=== PATIENT | female | born 1990 | race Caucasian/White ===

== ENCOUNTER 2017-02-26 23:48 | Emergency (ER) | payer OTHER ==
[~2017-02-26] VITALS: Ht 170.2 cm; Wt 76.2 kg
[~2017-02-26 23:48] MED LIST: CIPRO PO; FLOMAX0.4 M1 PO; KEFLEX500 MG PO; MACROBID100 MG PO; NO MEDICATIONS; PHENERGAN25 MG PO; TYLOX 5/500 CAP1 CAP PO; VICODIN 5/1 TAB 5/50 PO; ZOFRAN PO
== END 2017-02-27 02:00 | disposition left against medical advice (07) ==
LOC: CED 23:48
DX: Z53.21 Procedure and treatment not carried out due to patient leaving prior to being seen by health care provider (principal)